=== PATIENT | female | born 1990 | race Caucasian/White ===

== ENCOUNTER 2018-12-04 06:23 | Emergency (ER) | payer OTHER ==
[~2018-12-04] VITALS: Ht 165.1 cm; Wt 66.8 kg
[2018-12-04 06:31] VITALS: Ht 165.1 cm; Wt 66.8 kg
[2018-12-04 07:03] VITALS: BP 102/58
== END 2018-12-04 07:03 | disposition home or self-care (01) ==
LOC: ED 06:23
DX: J20.9 Acute bronchitis, unspecified (principal)